=== PATIENT | male | born 1950 | race Hispanic/Latino ===

== ENCOUNTER 2017-06-27 06:56 | Day surgery (SDC) | payer MEDICARE ==
[2017-06-16 11:36] VITALS: BMI 24.4
[2017-06-27] MEDS ORDERED: Bupivacaine 0.5% Inj(30mL) ONE (07:40)
[2017-06-27] MEDS ORDERED: Propofol 10 mg/ml Inj (20 ML) ONE ×2 (09:17→10:44)
[2017-06-27] MEDS ORDERED: Midazolam 2 MG/2 ML VIAL ONE (09:18)
[2017-06-27] MEDS ORDERED: Rocuronium 10 mg/ml (5 ml) ONE (09:27)
[2017-06-27] MEDS ORDERED: ePHEDrine 50 mg/ml Inj ONE (09:56)
[2017-06-27] MEDS ORDERED: Neostigmine Methylsulfate 3mg/3ml Syringe IV ONE (10:16)
[2017-06-27] MEDS ORDERED: Glycopyrrolate 0.2 mg/ml (2ml vial) ONE (10:17)
[2017-06-27] MEDS ORDERED: Morphine 2 mg/ml ISec IVP PRN (10:57)
[2017-06-27] MEDS ORDERED: Oxycodone/Acetaminophen 5/325 mg Tab PO PRN (10:59)
[2017-06-27] MEDS ORDERED: Lactated Ringer's 1,000 ML IV SCH (11:00)
--- NOTE | 2017-06-27 11:02 | PCM.SURG1 ---
Surgeon's Initial Post Op Note - Surgeon's Notes Surgeon: Dr. Zepeda Customer Development Manager: jason Mcgowan PGY 2, Geo PGY3 Type of Anesthesia: General Endo Pre-Operative Diagnosis: L inguinal hernia Operative Findings: L inguinal hernia Post-Operative Diagnosis: Same Operation Performed: Open L inguinal hernia repair Specimen/Specimens Removed: None Estimated Blood Loss: EBL {In ML}: 20 Blood Products Given: N/A Drains Used: No Drains Post-Op Condition: Good Date of Surgery/Procedure: 06/27/17 Time of Surgery/Procedure: 11:02
[2017-06-27 12:21] VITALS: RESP 18; TEMP 97.6; O2SAT 99
[2017-06-27 13:18] VITALS: BP 127/83; PULSE 83
== END 2017-06-27 13:50 | disposition home or self-care (01) ==
LOC: SDS 06:56
PROVIDERS: ATTEND Surgery
DX: K40.90 Unilateral inguinal hernia, without obstruction or gangrene, not specified as recurrent (principal); I10 Essential (primary) hypertension
CPT/HCPCS: 49505; 88302; C1781; J0690; J2001; J2250; J2270; J2405; J2704; J2710; J3010; J7120 ×2